=== PATIENT | female | born 1955 | race Caucasian/White ===

== ENCOUNTER 2020-02-21 23:35 | Emergency (ER) | payer BC ==
[~2020-02-21] VITALS: Ht 172.7 cm; Wt 61.4 kg
[2020-02-22] MEDS ORDERED: normal saline 1000ML IV soln IVB ONE (00:10)
[2020-02-22] MEDS ORDERED: ondansetron/PF 4mg/2ml inj IV ONE (00:10)
--- NOTE | 2020-02-22 00:17 | NUR ---
Pt. Family Member
[2020-02-22 00:37] LABS: BASOPHILS % (AUTO) 0.8 % (0-1); EOSINOPHILS % (AUTO) 0.1 % (0-6); LYMPHOCYTES # (AUTO) 0.8 X10'3 (1.1-4.8); LYMPHOCYTES % (AUTO) 21.6 % (21-51); MEAN CORPUSCULAR HEMOGLOBIN 30.5 PG (27.0-31.0); MEAN CORPUSCULAR VOLUME 89.8 FL (78-98); MEAN PLATELET VOLUME 8.7 FL (7.4-10.4); MONOCYTES # (AUTO) 0.3 X10'3 (0-0.9); MONOCYTES % (AUTO) 8.4 % (2-12); NEUTROPHILS # (AUTO) 2.7 X10'3 (1.8-7.7); NEUTROPHILS % (AUTO) 69.1 % (42-75); PLATELET COUNT 192 X10'3 (140-440); RED CELL DISTRIBUTION WIDTH 12.6 % (11.5-14.5); WHITE BLOOD COUNT 3.9 X10'3 (4.5-11.0)
[2020-02-22 00:52] LABS: ALANINE AMINOTRANSFERASE 19 U/L (12-78); ALBUMIN 4.2 G/DL (3.4-5.0); ALBUMIN/GLOBULIN RATIO 1.3 (1.1-1.5); ALKALINE PHOSPHATASE 71 IU/L (46-116); ANION GAP 14 (8-16); ASPARTATE AMINO TRANSFERASE 22 U/L (10-37); BILIRUBIN,TOTAL 0.5 MG/DL (0.1-1.0); BLOOD UREA NITROGEN 13 MG/DL (7-18); BUN/CREATININE RATIO 17.3 (6.6-38.0); CALCIUM 8.8 MG/DL (8.5-10.1); CHLORIDE 102 MMOL/L (99-107); CREATININE 0.75 MG/DL (0.40-0.90); GLUCOSE 137 MG/DL (70-104); POTASSIUM 3.4 MMOL/L (3.5-5.1); SODIUM 137 MMOL/L (135-145); TOTAL CARBON DIOXIDE 21.2 MMOL/L (24-32); TOTAL PROTEIN 7.4 G/DL (6.4-8.2); eGFR 78 ML/MIN
[2020-02-22] MEDS ORDERED: ONDA4TAB6 PO (01:16)
[2020-02-22] MEDS ORDERED: AZIT250T PO (01:17)
[2020-02-22] MEDS ORDERED: azithromycin 250mg tablet PO ONE (01:20)
--- NOTE | 2020-02-22 01:38 | NUR ---
DR. NICOLAS ORDERED A PO CHALLENGE. PT GIVEN WATER TO DRINK. PT STATES SHE CANNOT TOLERATE THE WATER AND HAD INCREASED NAUSEA AND DISCOMFORT. DR. NICOLAS NOTIFIED OF PT CONDITION.
[2020-02-22] MEDS ORDERED: proCHLORperazine 10 MG/2 ml inj IV ONE (01:50)
--- NOTE | 2020-02-22 01:51 | NUR ---
DR. NICOLAS PUT IN A VERBAL ORDER FOR 10MG IV COMPAZINE AND STATED TO TRY THE PO CHALLENGE AFTER.
[2020-02-22 03:07] VITALS: BP 119/76
== END 2020-02-22 03:08 | disposition home or self-care (01) ==
LOC: ER 23:36
DX: U07.1 COVID-19 (principal); B34.9 Viral infection, unspecified; R11.2 Nausea with vomiting, unspecified; R50.9 Fever, unspecified; R05 Cough; R06.02 Shortness of breath; Z79.2 Long term (current) use of antibiotics; Z79.899 Other long term (current) drug therapy
CPT/HCPCS: 36415; 71045; 80053; 85025; 87635; 96361; 96374; 96375; 99284; C9803; J0780; J2405; J7030

== ENCOUNTER 2022-12-02 10:11 | Day surgery (SDC) | payer BC ==
[2022-12-02] VITALS (8 sets, daily range): BP systolic 94–135; BP diastolic 57–75; PULSE 58–79; RESP 14–22; O2SAT 92–98
[~2022-12-02] VITALS: Ht 170.2 cm; Wt 59.0 kg
[~2022-12-02 10:11] MED LIST: AZIT250T PO; ONDA4TAB6 PO
[2022-12-02] MEDS ORDERED: LEVO100T PO (10:28)
[2022-12-02] MEDS ORDERED: TRIA15OI2 TOP (10:31)
[2022-12-02] MEDS ORDERED: fentaNYL/PF 50MCG/1 ML 2ML syringe ONE ×2 (11:08)
[2022-12-02] MEDS ORDERED: glucagon, human recombinant 1mg kit ONE (11:09)
[2022-12-02] MEDS ORDERED: iohexol 300mg/ml 100ml inj. ONE (11:09)
[2022-12-02] MEDS ORDERED: diphenhydrAMINE 50 mg/ml inj ONE (11:09)
[2022-12-02] MEDS ORDERED: levoFLOXACIN-Levaquin 500mg/D5 0 ML IV ONE (11:09)
[2022-12-02] MEDS ORDERED: MIDAZolam 1 MG/ML 5ML VIAL ONE (11:09)
[2022-12-02] MEDS ORDERED: LIDOcaine Viscous 15ml cup ONE (11:09)
[2022-12-02] MEDS ORDERED: proCHLORperazine 10 MG/2 ml inj ONE (11:26)
== END 2022-12-02 13:25 | disposition home or self-care (01) ==
LOC: GI LAB 10:11
PROVIDERS: ATTEND Internal Medicine Gastroenterology
DX: K83.8 Other specified diseases of biliary tract (principal); G61.0 Guillain-Barre syndrome; Z72.89 Other problems related to lifestyle; Z79.899 Other long term (current) drug therapy
CPT/HCPCS: 43262; 74328; 99153; G0500; J0780; J1610; J2250; J3010; J7030; Q9967; Z7512; Z7610; 43232; 99152; A4620; C1769; J1200; J1956